=== PATIENT | male | born 1955 | race Caucasian/White ===

== ENCOUNTER 2017-07-04 23:21 | Inpatient (IN) | payer OTHER ==
[2017-07-05] MEDS: ASPIRIN 325 MG TAB PO (01:52)
[2017-07-05] MEDS: NITROGLYCERIN (SL) 0.4 MG TAB SL (01:53)
[2017-07-05 02:04] LABS: ADD MAN DIFF? NO
[2017-07-05 02:06] LABS: WHITE BLOOD COUNT 14.3 10^3/ul (4.8-10.8)
[2017-07-05 02:06] LABS: BASOPHILS % 0.1 % (0.0-2.0); EOSINOPHILS # 0.1 10^3/ul (0.0-0.5); EOSINOPHILS % 0.3 % (0.0-7.0); HEMATOCRIT 34.2 % (42.0-52.0); HEMOGLOBIN 11.5 g/dl (14.0-18.0); MEAN CORPUSCULAR HEMOGLOBIN 30.2 pg (29.0-33.0); MEAN CORPUSCULAR HGB CONC 33.6 g/dl (32.0-37.0); MEAN CORPUSCULAR VOLUME 89.8 fl (82.0-101.0); MEAN PLATELET VOLUME 11.5 fl (7.4-10.4); MONOCYTE # 1.1 10^3/ul (0.3-0.9); MONOCYTES % 7.9 % (0.0-11.0); NEUTROPHILS % 77.1 % (39.0-77.0); PLATELET COUNT 198 10^3/UL (140-415); RED BLOOD COUNT 3.81 10^6/ul (4.70-6.10); RED CELL DISTRIBUTION WIDTH 12.6 % (11.5-14.5)
[2017-07-05 02:24] LABS: ANION GAP 14 (8-16); BLOOD UREA NITROGEN 22 mg/dl (7-20); CALCIUM 9.5 mg/dl (8.4-10.2); CARBON DIOXIDE 25 mmol/L (21-31); CHLORIDE 100 mmol/L (97-110); CREATININE 1.16 mg/dl (0.61-1.24); GLUCOSE 222 mg/dl (70-220); POTASSIUM 4.2 mmol/L (3.5-5.1); SODIUM 135 mmol/L (135-144)
[2017-07-05 02:36] LABS: B-TYPE NATRIURETIC PEPTIDE 700 PG/ML (0-125); TROPONIN-I 0.102 ng/ml (0.00-0.12)
[2017-07-05] MEDS ORDERED: ACETAMINOPHEN 325 MG TAB PO (07:00)
[2017-07-05 08:34] LABS: CREATINE KINASE 64 IU/L (23-200)
[2017-07-05 08:38] LABS: CK INDEX 4.6
[2017-07-05 08:39] LABS: CK-MB 2.96 ng/ml (0.0-2.4)
[2017-07-05 08:41] LABS: TROPONIN-I 0.338 ng/ml (0.00-0.12)
[2017-07-05] MEDS ORDERED: HYDROCODONE/APAP (5/325) TAB PO (11:30)
[2017-07-05] MEDS ORDERED: ALBUTEROL HFA 8 GM INHALER INH (11:30)
[2017-07-05] MEDS ORDERED: NACL 0.9% 3 ML SYG IV (11:30)
[2017-07-05] MEDS ORDERED: morphine 2 MG INJ IV (11:30)
[2017-07-05] MEDS ORDERED: DOCUSATE SODIUM 100 MG CAP PO (11:30)
[2017-07-05] MEDS ORDERED: ONDANSETRON 4 MG INJ IV (11:30)
[2017-07-05] MEDS: DIGOXIN 0.125 MG TAB PO (13:00)
[2017-07-05] MEDS ORDERED: ENOXAPARIN 40 MG/0.4 ML SYG SC (13:00)
[2017-07-05] MEDS: CLOPIDOGREL 75 MG TAB PO (13:28)
[2017-07-05] MEDS ORDERED: GLUCOSE GEL 15 GRAM TUBE PO ×2 (14:00)
[2017-07-05] MEDS ORDERED: GLUCOSE GEL 15 GRAM TUBE BUCCAL (14:00)
[2017-07-05] MEDS ORDERED: GLUCAGON 1 MG INJ IM (14:00)
[2017-07-05] MEDS ORDERED: DEXTROSE 50% 50 ML SYRINGE IV ×2 (14:00)
[2017-07-05 14:23] LABS: CREATINE KINASE 62 IU/L (23-200)
[2017-07-05 14:37] LABS: CK INDEX 4.2; TROPONIN-I 0.242 ng/ml (0.00-0.12)
[2017-07-05] MEDS ORDERED: LIDOCAINE 1% (MDV) 20 ML INJ (14:40)
[2017-07-05] MEDS ORDERED: IODIXANOL LOCM 100 ML BTL ×2 (14:40→15:21)
[2017-07-05] MEDS ORDERED: MIDAZOLAM 1 MG/ML 2 ML INJ (14:41)
[2017-07-05] MEDS ORDERED: NITROGLYCERIN (IC) 100 MCG/ML INJ ×2 (14:41→16:18)
[2017-07-05] MEDS ORDERED: FENTAnyl 50 MCG/ML VIAL ×2 (14:41→16:21)
[2017-07-05] MEDS ORDERED: VERAPAMIL 5 MG INJ ×2 (15:13→16:18)
[2017-07-05] MEDS: SOD CHLORIDE 0.9% 1,000 ML IV ×2 (16:09→20:20)
[2017-07-05] MEDS ORDERED: NITROGLYCERIN 50 MG/D5W (PMX) 250 ML (16:56)
[2017-07-05] MEDS ORDERED: morphine 10 MG INJ (17:03)
[2017-07-05] MEDS ORDERED: ONDANSETRON 4 MG INJ (17:10)
[2017-07-05] MEDS: morphine 2 MG INJ IV ×2 (17:23→17:53)
[2017-07-05] MEDS: NITROGLYCERIN 50 MG/D5W (PMX) 250 ML IV (18:37)
[2017-07-05] MEDS: ONDANSETRON 4 MG INJ IV (20:09)
[2017-07-05 21:12] LABS: CREATINE KINASE 868 IU/L (23-200)
[2017-07-05 21:25] LABS: CK INDEX 4.9
[2017-07-05] MEDS: ATORVASTATIN 40 MG TAB PO (21:56)
[2017-07-05] MEDS: FAMOTIDINE 20 MG INJ IV (21:56)
[2017-07-05] MEDS: traZODone 100 MG TAB PO (22:30)
[2017-07-06] MEDS: INSULIN ASPART [NOVOLOG] 3 ML PEN SC ×7 (00:20→22:21)
[2017-07-06 05:54] LABS: ADD MAN DIFF? NO
[2017-07-06 06:06] LABS: WHITE BLOOD COUNT 11.7 10^3/ul (4.8-10.8)
[2017-07-06 06:06] LABS: BASOPHILS % 0.2 % (0.0-2.0); EOSINOPHILS % 0.2 % (0.0-7.0); HEMATOCRIT 30.8 % (42.0-52.0); HEMOGLOBIN 10.3 g/dl (14.0-18.0); LYMPHOCYTES # 1.6 10^3/ul (0.8-2.9); LYMPHOCYTES % 13.9 % (15.0-51.0); MEAN CORPUSCULAR HGB CONC 33.4 g/dl (32.0-37.0); MEAN CORPUSCULAR VOLUME 89.8 fl (82.0-101.0); MEAN PLATELET VOLUME 11.6 fl (7.4-10.4); MONOCYTES % 8.3 % (0.0-11.0); PLATELET COUNT 179 10^3/UL (140-415); RED BLOOD COUNT 3.43 10^6/ul (4.70-6.10); RED CELL DISTRIBUTION WIDTH 12.7 % (11.5-14.5)
[2017-07-06 06:47] LABS: ANION GAP 14 (8-16); BLOOD UREA NITROGEN 21 mg/dl (7-20); CALCIUM 8.9 mg/dl (8.4-10.2); CARBON DIOXIDE 25 mmol/L (21-31); CHLORIDE 101 mmol/L (97-110); GLUCOSE 263 mg/dl (70-220); POTASSIUM 4.6 mmol/L (3.5-5.1); SODIUM 135 mmol/L (135-144)
[2017-07-06 06:51] LABS: MAGNESIUM 2.1 mg/dl (1.7-2.5)
[2017-07-06 06:51] LABS: PHOSPHORUS 4.6 mg/dl (2.5-4.9)
[2017-07-06] MEDS ORDERED: INSULIN GLARGINE [LANtus] 3 ML PEN SC (07:00)
[2017-07-06] MEDS: INSULIN GLARGINE [LANtus] 3 ML PEN SC ×2 (07:03→09:53)
[2017-07-06] MEDS: SPIRONOLACTONE 25 MG TAB PO (07:04)
[2017-07-06] MEDS: ENOXAPARIN 40 MG/0.4 ML SYG SC (07:51)
[2017-07-06 08:40] LABS: CREATINE KINASE 844 IU/L (23-200)
[2017-07-06] MEDS: ISOSORBIDE MONONITRATE(SR)30 MG TAB PO (08:49)
[2017-07-06] MEDS: LISINOPRIL 10 MG TAB PO (08:50)
[2017-07-06] MEDS: FUROSEMIDE 40 MG TAB PO (08:50)
[2017-07-06] MEDS: DOCUSATE SODIUM 100 MG CAP PO (08:50)
[2017-07-06] MEDS: CLOPIDOGREL 75 MG TAB PO (08:51)
[2017-07-06] MEDS: ASPIRIN (EC) 81 MG TAB PO (08:51)
[2017-07-06] MEDS: FAMOTIDINE 20 MG INJ IV ×2 (08:51→22:10)
[2017-07-06 08:52] LABS: CK INDEX 4.9
[2017-07-06] MEDS ORDERED: ASPIRIN (EC) 81 MG TAB PO (09:00)
[2017-07-06] MEDS: DIGOXIN 0.125 MG TAB PO (13:09)
[2017-07-06] MEDS: ATORVASTATIN 40 MG TAB PO (22:08)
[2017-07-06] MEDS: traZODone 100 MG TAB PO (22:09)
[2017-07-07] MEDS: SPIRONOLACTONE 25 MG TAB PO (06:33)
[2017-07-07 07:23] LABS: ADD MAN DIFF? NO
[2017-07-07 07:28] LABS: WHITE BLOOD COUNT 7.9 10^3/ul (4.8-10.8)
[2017-07-07 07:28] LABS: BASOPHILS % 0.3 % (0.0-2.0); EOSINOPHILS # 0.1 10^3/ul (0.0-0.5); EOSINOPHILS % 0.8 % (0.0-7.0); HEMATOCRIT 26.9 % (42.0-52.0); LYMPHOCYTES # 1.6 10^3/ul (0.8-2.9); LYMPHOCYTES % 19.8 % (15.0-51.0); MEAN CORPUSCULAR HEMOGLOBIN 30.5 pg (29.0-33.0); MEAN CORPUSCULAR HGB CONC 33.5 g/dl (32.0-37.0); MEAN CORPUSCULAR VOLUME 91.2 fl (82.0-101.0); MEAN PLATELET VOLUME 11.9 fl (7.4-10.4); MONOCYTE # 0.9 10^3/ul (0.3-0.9); MONOCYTES % 11.1 % (0.0-11.0); NEUTROPHIL # 5.4 10^3/ul (1.6-7.5); NEUTROPHILS % 67.5 % (39.0-77.0); PLATELET COUNT 161 10^3/UL (140-415); RED BLOOD COUNT 2.95 10^6/ul (4.70-6.10); RED CELL DISTRIBUTION WIDTH 12.7 % (11.5-14.5)
[2017-07-07 07:43] LABS: CREATINE KINASE 254 IU/L (23-200)
[2017-07-07 07:50] LABS: PHOSPHORUS 4.2 mg/dl (2.5-4.9)
[2017-07-07 07:52] LABS: ALANINE AMINOTRANSFERASE 27 IU/L (13-69); ALBUMIN 3.3 g/dl (3.3-4.9); ALBUMIN/GLOBULIN RATIO 1.06; ALKALINE PHOSPHATASE 67 IU/L (42-121); ANION GAP 14 (8-16); ASPARTATE AMINO TRANSFERASE 60 IU/L (15-46); BILIRUBIN,INDIRECT 0.4 mg/dl (0-1.1); BILIRUBIN,TOTAL 0.4 mg/dl (0.2-1.3); BLOOD UREA NITROGEN 30 mg/dl (7-20); CALCIUM 9.1 mg/dl (8.4-10.2); CARBON DIOXIDE 27 mmol/L (21-31); CHLORIDE 102 mmol/L (97-110); CREATININE 1.47 mg/dl (0.61-1.24); GLUCOSE 164 mg/dl (70-220); MAGNESIUM 2.1 mg/dl (1.7-2.5); POTASSIUM 4.5 mmol/L (3.5-5.1); SODIUM 138 mmol/L (135-144); TOTAL PROTEIN 6.4 g/dl (6.1-8.1)
[2017-07-07 07:55] LABS: CK INDEX 2.2
[2017-07-07 07:57] LABS: B-TYPE NATRIURETIC PEPTIDE 2080 PG/ML (0-125)
[2017-07-07 07:58] LABS: CK-MB 5.58 ng/ml (0.0-2.4)
[2017-07-07 08:14] LABS: DIGOXIN 0.6 ng/ml (1.0-2.0)
[2017-07-07] MEDS: INSULIN GLARGINE [LANtus] 3 ML PEN SC (08:50)
[2017-07-07] MEDS: INSULIN ASPART [NOVOLOG] 3 ML PEN SC ×7 (08:52→21:00)
[2017-07-07] MEDS: ISOSORBIDE MONONITRATE(SR)30 MG TAB PO (09:00)
[2017-07-07] MEDS: DOCUSATE SODIUM 100 MG CAP PO (10:21)
[2017-07-07] MEDS: FUROSEMIDE 40 MG TAB PO (10:21)
[2017-07-07] MEDS: ASPIRIN (EC) 81 MG TAB PO (10:21)
[2017-07-07] MEDS: CLOPIDOGREL 75 MG TAB PO (10:21)
[2017-07-07] MEDS: FAMOTIDINE 20 MG INJ IV ×2 (10:22→21:31)
[2017-07-07] MEDS: DIGOXIN 0.125 MG TAB PO (12:11)
[2017-07-07] MEDS: INFLUENZA VIRUS VACCINE 0.5 ML SYG IM* (12:12)
[2017-07-07] MEDS: ATORVASTATIN 40 MG TAB PO (21:30)
[2017-07-07] MEDS: traZODone 100 MG TAB PO (21:31)
[2017-07-07] MEDS: ACETAMINOPHEN 325 MG TAB PO (22:21)
[2017-07-08] MEDS: NITROGLYCERIN (SL) 0.4 MG TAB SL (06:37)
[2017-07-08] MEDS: SPIRONOLACTONE 25 MG TAB PO (06:37)
[2017-07-08 07:20] LABS: ADD MAN DIFF? NO
[2017-07-08 07:37] LABS: WHITE BLOOD COUNT 6.4 10^3/ul (4.8-10.8)
[2017-07-08 07:37] LABS: BASOPHILS % 0.5 % (0.0-2.0); EOSINOPHILS # 0.1 10^3/ul (0.0-0.5); EOSINOPHILS % 1.7 % (0.0-7.0); HEMATOCRIT 29.7 % (42.0-52.0); HEMOGLOBIN 9.7 g/dl (14.0-18.0); LYMPHOCYTES # 0.9 10^3/ul (0.8-2.9); LYMPHOCYTES % 14.6 % (15.0-51.0); MEAN CORPUSCULAR HEMOGLOBIN 29.8 pg (29.0-33.0); MEAN CORPUSCULAR HGB CONC 32.7 g/dl (32.0-37.0); MEAN CORPUSCULAR VOLUME 91.1 fl (82.0-101.0); MEAN PLATELET VOLUME 11.6 fl (7.4-10.4); MONOCYTE # 0.7 10^3/ul (0.3-0.9); MONOCYTES % 10.7 % (0.0-11.0); NEUTROPHIL # 4.6 10^3/ul (1.6-7.5); PLATELET COUNT 184 10^3/UL (140-415); RED BLOOD COUNT 3.26 10^6/ul (4.70-6.10); RED CELL DISTRIBUTION WIDTH 12.5 % (11.5-14.5)
[2017-07-08 07:52] LABS: ALANINE AMINOTRANSFERASE 34 IU/L (13-69); ALBUMIN 3.5 g/dl (3.3-4.9); ALBUMIN/GLOBULIN RATIO 1.25; ALKALINE PHOSPHATASE 80 IU/L (42-121); ANION GAP 16 (8-16); ASPARTATE AMINO TRANSFERASE 40 IU/L (15-46); BILIRUBIN,INDIRECT 0.3 mg/dl (0-1.1); BILIRUBIN,TOTAL 0.3 mg/dl (0.2-1.3); BLOOD UREA NITROGEN 24 mg/dl (7-20); CALCIUM 8.7 mg/dl (8.4-10.2); CARBON DIOXIDE 25 mmol/L (21-31); CHLORIDE 102 mmol/L (97-110); CREATININE 1.16 mg/dl (0.61-1.24); GLUCOSE 139 mg/dl (70-220); POTASSIUM 4.2 mmol/L (3.5-5.1); SODIUM 139 mmol/L (135-144); TOTAL PROTEIN 6.3 g/dl (6.1-8.1)
[2017-07-08 08:00] LABS: B-TYPE NATRIURETIC PEPTIDE 2320 PG/ML (0-125)
[2017-07-08] MEDS: ACETAMINOPHEN 325 MG TAB PO (08:14)
[2017-07-08] MEDS: INSULIN ASPART [NOVOLOG] 3 ML PEN SC ×4 (08:21→12:19)
[2017-07-08] MEDS: INSULIN GLARGINE [LANtus] 3 ML PEN SC (08:24)
[2017-07-08] MEDS: DOCUSATE SODIUM 100 MG CAP PO (09:42)
[2017-07-08] MEDS: FUROSEMIDE 40 MG TAB PO (09:43)
[2017-07-08] MEDS: CLOPIDOGREL 75 MG TAB PO (09:43)
[2017-07-08] MEDS: FAMOTIDINE 20 MG INJ IV (09:43)
[2017-07-08] MEDS: BISACODYL (EC) 5 MG TAB PO (09:43)
[2017-07-08] MEDS: ASPIRIN (EC) 81 MG TAB PO (09:43)
[2017-07-08] MEDS: ISOSORBIDE MONONITRATE(SR)30 MG TAB PO (09:44)
[2017-07-08] MEDS: DIGOXIN 0.125 MG TAB PO (12:14)
[2017-07-08] MEDS: LINAGLIPTIN 5 MG TABLET PO (13:29)
== END 2017-07-08 16:55 | disposition home or self-care (01) | DRG 247 ==
LOC: E/R 23:21 → MS4 07-06 13:04 → CCL 07-05 14:20 → SDS 07-05 14:20 → ICU 07-05 17:48 → CCL 07-05 14:21 → ICU 07-05 18:09
PROC: 027034Z Dilation of Coronary Artery, One Artery with Drug-eluting Intraluminal Device, Percutaneous Approach (ICD-10-PCS; principal; 2017-07-05 13:40)
PROC: 02703DZ Dilation of Coronary Artery, One Artery with Intraluminal Device, Percutaneous Approach (ICD-10-PCS; 2017-07-05 13:40)
PROC: 4A023N7 Measurement of Cardiac Sampling and Pressure, Left Heart, Percutaneous Approach (ICD-10-PCS; 2017-07-05 13:40)
PROC: B211YZZ Fluoroscopy of Multiple Coronary Arteries using Other Contrast (ICD-10-PCS; 2017-07-05 13:40)
PROC: B218YZZ Fluoroscopy of Left Internal Mammary Bypass Graft using Other Contrast (ICD-10-PCS; 2017-07-05 13:40)
PROC: B212YZZ Fluoroscopy of Single Coronary Artery Bypass Graft using Other Contrast (ICD-10-PCS; 2017-07-05 13:40)
DX: I21.4 Non-ST elevation (NSTEMI) myocardial infarction (principal); N17.9 Acute kidney failure, unspecified; I11.0 Hypertensive heart disease with heart failure; I50.22 Chronic systolic (congestive) heart failure; E11.65 Type 2 diabetes mellitus with hyperglycemia; T82.897A Other specified complication of cardiac prosthetic devices, implants and grafts, initial encounter; Z86.74 Personal history of sudden cardiac arrest; I25.5 Ischemic cardiomyopathy; I25.10 Atherosclerotic heart disease of native coronary artery without angina pectoris; I73.9 Peripheral vascular disease, unspecified; Y71.2 Prosthetic and other implants, materials and accessory cardiovascular devices associated with adverse incidents; E78.5 Hyperlipidemia, unspecified; Z95.0 Presence of cardiac pacemaker; Z95.1 Presence of aortocoronary bypass graft; Z87.891 Personal history of nicotine dependence; Z79.82 Long term (current) use of aspirin; Z79.4 Long term (current) use of insulin
CPT/HCPCS: 36415; 71010; 80048; 80053; 80162; 82550; 82553; 82962; 83036; 83735; 83880; 84100; 84484; 85025; 87400; 90686; 92941; 93005; 93306; 93308; 93459; 99285-25

== ENCOUNTER 2017-11-28 21:50 | Emergency (ER) | payer OTHER ==
[2017-11-29] MEDS: ONDANSETRON (ODT) 4 MG TAB ODT (00:27)
[2017-11-29] MEDS ORDERED: CEFTRIAXONE 1 GM INJ IM (00:30)
[2017-11-29] MEDS: HYDROCODONE/APAP (10/325) TAB PO (00:40)
[2017-11-29] MEDS: CLINDAMYCIN 300 MG INJ IM (01:01)
== END 2017-11-29 02:31 | disposition home or self-care (01) ==
LOC: FTE 21:50
DX: L03.313 Cellulitis of chest wall (principal); E11.9 Type 2 diabetes mellitus without complications; I10 Essential (primary) hypertension; F17.210 Nicotine dependence, cigarettes, uncomplicated; Z79.01 Long term (current) use of anticoagulants; Z79.4 Long term (current) use of insulin; Z79.82 Long term (current) use of aspirin
CPT/HCPCS: 93005; 96372; 99284-25

== ENCOUNTER 2018-07-19 17:56 | Observation (INO) | payer OTHER ==
[2018-07-19 19:06] LABS: ADD MAN DIFF? NO
[2018-07-19 19:09] LABS: BASOPHILS % 0.4 % (0.0-2.0); EOSINOPHILS # 0.1 10^3/ul (0.0-0.5); EOSINOPHILS % 1.8 % (0.0-7.0); HEMOGLOBIN 13.3 g/dl (14.0-18.0); LYMPHOCYTES # 1.9 10^3/ul (0.8-2.9); LYMPHOCYTES % 23.8 % (15.0-51.0); MEAN CORPUSCULAR HEMOGLOBIN 29.7 pg (29.0-33.0); MEAN CORPUSCULAR HGB CONC 33.3 g/dl (32.0-37.0); MEAN CORPUSCULAR VOLUME 89.3 fl (82.0-101.0); MEAN PLATELET VOLUME 11.4 fl (7.4-10.4); MONOCYTE # 0.6 10^3/ul (0.3-0.9); MONOCYTES % 7.2 % (0.0-11.0); NEUTROPHIL # 5.3 10^3/ul (1.6-7.5); NEUTROPHILS % 66.4 % (39.0-77.0); PLATELET COUNT 197 10^3/UL (140-415); RED BLOOD COUNT 4.48 10^6/ul (4.70-6.10); RED CELL DISTRIBUTION WIDTH 13.2 % (11.5-14.5)
[2018-07-19 19:28] LABS: ANION GAP 10 (5-13); BLOOD UREA NITROGEN 19 mg/dl (7-20); CALCIUM 9.2 mg/dl (8.4-10.2); CARBON DIOXIDE 23 mmol/L (21-31); CHLORIDE 103 mmol/L (97-110); CREATININE 1.06 mg/dl (0.61-1.24); Estimated GFR > 60 mL/min (>60); GLUCOSE 200 mg/dl (70-220); POTASSIUM 4.6 mmol/L (3.5-5.1); SODIUM 136 mmol/L (135-144)
[2018-07-19] MEDS ORDERED: ACETAMINOPHEN 325 MG TAB PO (20:30)
[2018-07-19] MEDS ORDERED: ONDANSETRON 4 MG INJ IV (20:30)
[2018-07-20] MEDS ORDERED: NITROGLYCERIN (SL) 0.4 MG TAB SL (00:30)
[2018-07-20] MEDS ORDERED: GLUCOSE GEL 15 GRAM TUBE BUCCAL (01:00)
[2018-07-20] MEDS ORDERED: GLUCOSE GEL 15 GRAM TUBE PO ×2 (01:00)
[2018-07-20] MEDS ORDERED: ACETAMINOPHEN 325 MG TAB PO (01:00)
[2018-07-20] MEDS ORDERED: GLUCAGON 1 MG INJ IM (01:00)
[2018-07-20] MEDS ORDERED: DEXTROSE 50% 50 ML SYRINGE IV ×2 (01:00)
[2018-07-20] MEDS: ACCU-CHEK XX ×3 (01:09→11:57)
[2018-07-20 01:15] LABS: CREATINE KINASE 105 IU/L (23-200)
[2018-07-20 01:25] LABS: CK INDEX 1.6; CK-MB 1.71 ng/ml (0.0-2.4); TROPONIN-I 0.036 ng/ml (0.000-0.120)
[2018-07-20] MEDS: PANTOPRAZOLE (EC) 40 MG TAB PO (06:46)
[2018-07-20 07:27] LABS: CREATINE KINASE 92 IU/L (23-200)
[2018-07-20 07:41] LABS: CK INDEX 1.7; CK-MB 1.56 ng/ml (0.0-2.4); TROPONIN-I 0.033 ng/ml (0.000-0.120)
[2018-07-20] MEDS: INSULIN ASPART [NOVOLOG] 3 ML PEN SC ×4 (07:55→12:07)
[2018-07-20] MEDS ORDERED: INSULIN LISPRO 4 UNIT SQ (07:55)
[2018-07-20 07:58] LABS: TROPONIN-I 0.038 ng/ml (0.000-0.120)
[2018-07-20] MEDS: ASPIRIN (EC) 81 MG TAB PO (08:35)
[2018-07-20] MEDS: CLOPIDOGREL 75 MG TAB PO (08:36)
[2018-07-20] MEDS: FUROSEMIDE 20 MG TAB PO (08:36)
[2018-07-20] MEDS: SPIRONOLACTONE 25 MG TAB PO (08:37)
[2018-07-20] MEDS: EMPAGLIFLOZIN 10 MG TABLET PO (08:37)
[2018-07-20 08:56] LABS: HEMOGLOBIN A1C 7.4 % (0-5.9)
[2018-07-20 09:26] LABS: CHOLESTEROL 144 mg/dl (100-200)
[2018-07-20 09:26] LABS: CHOL/HDL RATIO 6.5 RATIO; HDL CHOLESTEROL 22 mg/dl (30-78); LDL CHOLESTEROL,CALCULATED 87 mg/dl; TRIGLYCERIDES 176 mg/dl (0-149)
[2018-07-20 09:29] LABS: DIGOXIN 0.5 ng/ml (1.0-2.0)
[2018-07-20] MEDS: ISOSORBIDE MONONITRATE(SR)60 MG TAB PO (09:52)
[2018-07-20] MEDS: clonAZEPAM 0.5 MG TAB PO (11:07)
[2018-07-20] MEDS ORDERED: clonAZEPAM 0.5 MG TAB PO (12:00)
[2018-07-20] MEDS: INSULIN GLARGINE [LANtus] 3 ML PEN SC (12:08)
[2018-07-20] MEDS ORDERED: LORAZEPAM 0.5 MG TAB PO (12:30)
[2018-07-20] MEDS: DIGOXIN 0.125 MG TAB PO (12:43)
[2018-07-20] MEDS ORDERED: ATORVASTATIN 80 MG TAB PO (21:00)
[2018-07-20] MEDS ORDERED: SACUBITRIL/VALSARTAN (24mg-26mg) TABLET PO (21:00)
[2018-07-20] MEDS ORDERED: traZODone 100 MG TAB PO (21:00)
[2018-07-21] MEDS ORDERED: PANTOPRAZOLE (EC) 40 MG TAB PO (06:00)
[2018-07-21] MEDS ORDERED: INSULIN GLARGINE [LANTus] (100 UNITS/ML) SYG SC (09:00)
== END 2018-07-20 15:33 | disposition home or self-care (01) ==
LOC: E/R 17:56 → TEL 20:15
PROVIDERS: Internal Medicine
DX: R07.9 Chest pain, unspecified (principal); I25.10 Atherosclerotic heart disease of native coronary artery without angina pectoris; Z95.1 Presence of aortocoronary bypass graft; E11.9 Type 2 diabetes mellitus without complications; I11.0 Hypertensive heart disease with heart failure; I50.9 Heart failure, unspecified; K21.9 Gastro-esophageal reflux disease without esophagitis; I25.5 Ischemic cardiomyopathy; F41.9 Anxiety disorder, unspecified; E78.5 Hyperlipidemia, unspecified; Z87.891 Personal history of nicotine dependence; Z79.82 Long term (current) use of aspirin; Z79.4 Long term (current) use of insulin; Z82.49 Family history of ischemic heart disease and other diseases of the circulatory system
CPT/HCPCS: 36415; 71045; 80048; 80061; 80162; 82550; 82553; 82962; 83036; 84484; 85025; 93005; 93306; 99285-25; G0378

== ENCOUNTER 2018-09-06 10:02 | Emergency (ER) | payer OTHER ==
[2018-09-06] MEDS: LORAZEPAM 1 MG TAB PO (10:50)
[2018-09-06 10:57] LABS: ADD MAN DIFF? NO
[2018-09-06 11:00] LABS: WHITE BLOOD COUNT 6.7 10^3/ul (4.8-10.8)
[2018-09-06 11:00] LABS: BASOPHILS % 0.6 % (0.0-2.0); EOSINOPHILS # 0.2 10^3/ul (0.0-0.5); EOSINOPHILS % 2.5 % (0.0-7.0); HEMATOCRIT 41.7 % (42.0-52.0); HEMOGLOBIN 13.4 g/dl (14.0-18.0); LYMPHOCYTES # 1.8 10^3/ul (0.8-2.9); LYMPHOCYTES % 26.5 % (15.0-51.0); MEAN CORPUSCULAR HEMOGLOBIN 29.8 pg (29.0-33.0); MEAN CORPUSCULAR HGB CONC 32.1 g/dl (32.0-37.0); MEAN CORPUSCULAR VOLUME 92.9 fl (82.0-101.0); MEAN PLATELET VOLUME 11.9 fl (7.4-10.4); MONOCYTE # 0.5 10^3/ul (0.3-0.9); NEUTROPHIL # 4.2 10^3/ul (1.6-7.5); NEUTROPHILS % 61.8 % (39.0-77.0); PLATELET COUNT 187 10^3/UL (140-415); RED BLOOD COUNT 4.49 10^6/ul (4.70-6.10); RED CELL DISTRIBUTION WIDTH 12.7 % (11.5-14.5)
[2018-09-06 11:23] LABS: ALANINE AMINOTRANSFERASE 16 IU/L (13-69); ALBUMIN 4.2 g/dl (3.3-4.9); ALBUMIN/GLOBULIN RATIO 1.31; ALKALINE PHOSPHATASE 86 IU/L (42-121); ANION GAP 12 (5-13); ASPARTATE AMINO TRANSFERASE 27 IU/L (15-46); BILIRUBIN,INDIRECT 0.2 mg/dl (0-1.1); BILIRUBIN,TOTAL 0.2 mg/dl (0.2-1.3); BLOOD UREA NITROGEN 20 mg/dl (7-20); CALCIUM 9.5 mg/dl (8.4-10.2); CARBON DIOXIDE 24 mmol/L (21-31); CHLORIDE 104 mmol/L (97-110); CREATININE 1.31 mg/dl (0.61-1.24); Estimated GFR 56 mL/min (>60); GLUCOSE 272 mg/dl (70-220); LIPASE 94 U/L (23-300); POTASSIUM 4.4 mmol/L (3.5-5.1); SODIUM 140 mmol/L (135-144); TOTAL PROTEIN 7.4 g/dl (6.1-8.1)
[2018-09-06 11:35] LABS: B-TYPE NATRIURETIC PEPTIDE 535 PG/ML (0-125); TROPONIN-I 0.014 ng/ml (0.000-0.120)
== END 2018-09-06 13:06 | disposition home or self-care (01) ==
LOC: E/R 10:02
DX: F41.9 Anxiety disorder, unspecified (principal); F51.01 Primary insomnia; I25.10 Atherosclerotic heart disease of native coronary artery without angina pectoris; I11.0 Hypertensive heart disease with heart failure; I50.9 Heart failure, unspecified; E11.9 Type 2 diabetes mellitus without complications; I25.2 Old myocardial infarction; Z95.1 Presence of aortocoronary bypass graft; Z95.0 Presence of cardiac pacemaker; Z79.4 Long term (current) use of insulin; Z79.82 Long term (current) use of aspirin; Z79.01 Long term (current) use of anticoagulants; Z98.61 Coronary angioplasty status
CPT/HCPCS: 36415; 71045; 80053; 82962; 83690; 83880; 84484; 85025; 93005; 99285-25